=== PATIENT | male | born 1980 | race Caucasian/White ===

== ENCOUNTER 2022-06-05 01:38 | Inpatient (IN) | payer MEDICAID ==
[~2022-06-05] VITALS: Ht 188 cm; Wt 77.1 kg
[~2022-06-05 01:38] MED LIST: ARIP10TA38 PO; ARIP5TAB37 PO; BENZ1TAB96 PO; OLAN15TA21 PO; OLAN5TAB94 PO
[2022-06-05] MEDS ORDERED: OLAN5TAB94 PO ×2 (04:01→04:13)
[2022-06-05 13:59] VITALS: BP 129/61
[2022-06-05] MEDS ORDERED: PROMETHAZINE HCL 25 MG TABLET PO PRN (14:00)
[2022-06-05] MEDS ORDERED: HydrOXYzine PAMOATE 50 MG CAPSULE PO PRN ×2 (14:00→16:30)
[2022-06-05] MEDS ORDERED: OLANZapine 5 MG RAPDIS TABLET PO PRN ×2 (14:00)
[2022-06-05] MEDS ORDERED: ZOLPIDEM TARTRATE 10 MG TABLET PO PRN (14:00)
[2022-06-05] MEDS ORDERED: PALIPERIDONE PALMITATE 234 MG/1.5 ML SYRINGE IM ONE (14:00)
[2022-06-05] MEDS ORDERED: TUBERCULIN, PURIFIED PROTEIN DERIVATIVE 5 TU/0.1 ML SYRINGE ID ONE (14:00)
[2022-06-05] MEDS ORDERED: LORazepam 2 MG TABLET PO PRN (14:00)
[2022-06-05] MEDS ORDERED: GuaiFENesin/D-METHORPHAN [SUGAR-FREE] 200-20MG/10 ML SYRUP UDCUP PO PRN ×2 (14:00→16:30)
[2022-06-05] MEDS: THIAMINE 100 MG TABLET PO SCH (16:00)
[2022-06-05 16:05] VITALS: BP 112/62
[2022-06-05] MEDS ORDERED: THIAMINE 100 MG TABLET PO SCH (17:00)
[2022-06-05] MEDS ORDERED: OLANZapine 5 MG RAPDIS TABLET PO SCH (21:00)
[2022-06-05] MEDS: MELATONIN 5 MG TABLET PO SCH (21:30)
[2022-06-06 07:37] LABS: HEMOGLOBIN A1C 5.8 % (3.8-5.6)
[2022-06-06 07:43] LABS: CHOL/HDL RATIO 3.5 (4.2-7.3); FREE T4 (FREE THYROXINE) 0.73 ng/dL (0.76-1.46); THYROID STIMULATING HORMONE 2.14 uIU/mL (0.36-3.74)
[2022-06-06 08:45] VITALS: BP 120/67
[2022-06-06] MEDS: MULTIVITAMINS WITH MINERALS, THERAPEUTIC TABLET PO SCH (08:53)
[2022-06-06] MEDS: THIAMINE 100 MG TABLET PO SCH ×2 (08:53→16:32)
[2022-06-06] MEDS: FOLIC ACID 1 MG TABLET PO SCH (08:53)
[2022-06-06] MEDS: NALTREXONE HCL 50 MG TABLET PO SCH (08:54)
[2022-06-06] MEDS: OMEGA-3/DHA/EPA/FISH OIL 1,000 MG CAPSULE PO SCH (08:54)
[2022-06-06] MEDS ORDERED: FOLIC ACID 1 MG TABLET PO SCH (09:00)
[2022-06-06] MEDS ORDERED: MULTIVITAMINS WITH MINERALS, THERAPEUTIC TABLET PO SCH (09:00)
[2022-06-06 16:34] VITALS: BP 122/80
[2022-06-06] MEDS ORDERED: PALIPERIDONE PALMITATE 234 MG/1.5 ML SYRINGE IM ONE (18:15)
[2022-06-06] MEDS: MELATONIN 5 MG TABLET PO SCH (20:26)
[2022-06-07 08:00] VITALS: BP 126/89
[2022-06-07] MEDS: MULTIVITAMINS WITH MINERALS, THERAPEUTIC TABLET PO SCH (08:30)
[2022-06-07] MEDS: OMEGA-3/DHA/EPA/FISH OIL 1,000 MG CAPSULE PO SCH (08:30)
[2022-06-07] MEDS: THIAMINE 100 MG TABLET PO SCH ×2 (08:30→16:57)
[2022-06-07] MEDS: FOLIC ACID 1 MG TABLET PO SCH (08:30)
[2022-06-07] MEDS: NALTREXONE HCL 50 MG TABLET PO SCH (08:30)
[2022-06-07 16:13] VITALS: BP 113/73
[2022-06-07] MEDS: MELATONIN 5 MG TABLET PO SCH (21:00)
[2022-06-08] MEDS: MULTIVITAMINS WITH MINERALS, THERAPEUTIC TABLET PO SCH (08:39)
[2022-06-08] MEDS: NALTREXONE HCL 50 MG TABLET PO SCH (08:39)
[2022-06-08] MEDS: THIAMINE 100 MG TABLET PO SCH ×2 (08:39→16:07)
[2022-06-08] MEDS: FOLIC ACID 1 MG TABLET PO SCH (08:40)
[2022-06-08] MEDS: OMEGA-3/DHA/EPA/FISH OIL 1,000 MG CAPSULE PO SCH (08:40)
[2022-06-08 09:32] VITALS: BP 137/79
[2022-06-08 16:37] VITALS: BP 135/76
[2022-06-08] MEDS: MELATONIN 5 MG TABLET PO SCH (20:08)
[2022-06-08 20:33] VITALS: BP 152/75
[2022-06-09] MEDS: MULTIVITAMINS WITH MINERALS, THERAPEUTIC TABLET PO SCH (08:44)
[2022-06-09] MEDS: OMEGA-3/DHA/EPA/FISH OIL 1,000 MG CAPSULE PO SCH (08:44)
[2022-06-09] MEDS: THIAMINE 100 MG TABLET PO SCH ×2 (08:44→16:34)
[2022-06-09] MEDS: ARIPiprazole 10 MG TABLET PO SCH (08:44)
[2022-06-09] MEDS: NALTREXONE HCL 50 MG TABLET PO SCH ×2 (08:44→09:00)
[2022-06-09] MEDS: FOLIC ACID 1 MG TABLET PO SCH (08:45)
[2022-06-09 09:00] VITALS: BP 125/87
[2022-06-09] MEDS ORDERED: PALIPERIDONE PALMITATE 156 MG/ML SYRINGE IM ONE (09:00)
[2022-06-09 16:27] VITALS: BP 118/72
[2022-06-09] MEDS: MELATONIN 5 MG TABLET PO SCH (20:21)
[2022-06-10 08:00] VITALS: BP 111/61
[2022-06-10] MEDS: THIAMINE 100 MG TABLET PO SCH ×2 (09:00→16:41)
[2022-06-10] MEDS ORDERED: PALIPERIDONE PALMITATE 156 MG/ML SYRINGE IM ONE (09:00)
[2022-06-10] MEDS: NALTREXONE HCL 50 MG TABLET PO SCH ×2 (09:00→09:30)
[2022-06-10] MEDS: OMEGA-3/DHA/EPA/FISH OIL 1,000 MG CAPSULE PO SCH (09:30)
[2022-06-10] MEDS: ARIPiprazole 10 MG TABLET PO SCH (09:30)
[2022-06-10] MEDS: FOLIC ACID 1 MG TABLET PO SCH (09:30)
[2022-06-10] MEDS: MULTIVITAMINS WITH MINERALS, THERAPEUTIC TABLET PO SCH (09:30)
[2022-06-10 16:00] VITALS: BP 117/68
[2022-06-10] MEDS: MELATONIN 5 MG TABLET PO SCH (21:00)
[2022-06-11 06:44] LABS: COVID AG,FIA SOURCE NASAL SWAB
[2022-06-11 08:52] VITALS: BP 130/87
[2022-06-11] MEDS: ARIPiprazole 10 MG TABLET PO SCH (09:08)
[2022-06-11] MEDS: MULTIVITAMINS WITH MINERALS, THERAPEUTIC TABLET PO SCH (09:08)
[2022-06-11] MEDS: NALTREXONE HCL 50 MG TABLET PO SCH (09:08)
[2022-06-11] MEDS: OMEGA-3/DHA/EPA/FISH OIL 1,000 MG CAPSULE PO SCH (09:08)
[2022-06-11] MEDS: FOLIC ACID 1 MG TABLET PO SCH (09:08)
[2022-06-11] MEDS: THIAMINE 100 MG TABLET PO SCH ×2 (09:08→16:44)
[2022-06-11 16:15] VITALS: BP 122/68
[2022-06-11] MEDS: MELATONIN 5 MG TABLET PO SCH (21:00)
[2022-06-12] MEDS: NALTREXONE HCL 50 MG TABLET PO SCH (09:00)
[2022-06-12] MEDS: THIAMINE 100 MG TABLET PO SCH ×2 (09:58→16:43)
[2022-06-12] MEDS: OMEGA-3/DHA/EPA/FISH OIL 1,000 MG CAPSULE PO SCH (09:58)
[2022-06-12] MEDS: MULTIVITAMINS WITH MINERALS, THERAPEUTIC TABLET PO SCH (09:58)
[2022-06-12] MEDS: ARIPiprazole 10 MG TABLET PO SCH (09:58)
[2022-06-12] MEDS: FOLIC ACID 1 MG TABLET PO SCH (09:58)
[2022-06-12 10:53] VITALS: BP 144/77
[2022-06-12 16:00] VITALS: BP 103/66
[2022-06-12] MEDS: MELATONIN 5 MG TABLET PO SCH (21:00)
[2022-06-13 08:30] VITALS: BP 137/75
[2022-06-13] MEDS: NALTREXONE HCL 50 MG TABLET PO SCH (09:00)
[2022-06-13] MEDS: FOLIC ACID 1 MG TABLET PO SCH (10:32)
[2022-06-13] MEDS: MULTIVITAMINS WITH MINERALS, THERAPEUTIC TABLET PO SCH (10:32)
[2022-06-13] MEDS: THIAMINE 100 MG TABLET PO SCH ×2 (10:33→16:01)
[2022-06-13] MEDS: OMEGA-3/DHA/EPA/FISH OIL 1,000 MG CAPSULE PO SCH (10:33)
[2022-06-13] MEDS: ARIPiprazole 10 MG TABLET PO SCH (10:33)
[2022-06-13 16:40] VITALS: BP 116/67
[2022-06-13] MEDS: MELATONIN 5 MG TABLET PO SCH (20:06)
[2022-06-14] MEDS: NALTREXONE HCL 50 MG TABLET PO SCH (09:00)
[2022-06-14 09:12] VITALS: BP 146/83
[2022-06-14] MEDS: OMEGA-3/DHA/EPA/FISH OIL 1,000 MG CAPSULE PO SCH (09:18)
[2022-06-14] MEDS: MULTIVITAMINS WITH MINERALS, THERAPEUTIC TABLET PO SCH (09:18)
[2022-06-14] MEDS: FOLIC ACID 1 MG TABLET PO SCH (09:18)
[2022-06-14] MEDS: THIAMINE 100 MG TABLET PO SCH ×2 (09:18→16:17)
[2022-06-14] MEDS: ARIPiprazole 10 MG TABLET PO SCH (09:18)
[2022-06-14 16:28] VITALS: BP 144/68
[2022-06-14] MEDS: DOCUSATE SODIUM 100 MG CAPSULE PO SCH (20:26)
[2022-06-14] MEDS: MELATONIN 5 MG TABLET PO SCH (20:26)
[2022-06-15] MEDS ORDERED: MAGNESIUM CITRATE 300 ML ORAL SOLUTION PO ONE (07:00)
[2022-06-15] MEDS: MULTIVITAMINS WITH MINERALS, THERAPEUTIC TABLET PO SCH (08:32)
[2022-06-15] MEDS: OMEGA-3/DHA/EPA/FISH OIL 1,000 MG CAPSULE PO SCH (08:32)
[2022-06-15] MEDS: ARIPiprazole 10 MG TABLET PO SCH (08:32)
[2022-06-15] MEDS: THIAMINE 100 MG TABLET PO SCH (08:32)
[2022-06-15] MEDS: FOLIC ACID 1 MG TABLET PO SCH (08:33)
[2022-06-15] MEDS: NALTREXONE HCL 50 MG TABLET PO SCH (08:33)
[2022-06-15 09:32] VITALS: BP 125/76
[2022-06-15 16:14] VITALS: BP 107/65
[2022-06-15] MEDS: DOCUSATE SODIUM 100 MG CAPSULE PO SCH (20:31)
[2022-06-15] MEDS: MELATONIN 5 MG TABLET PO SCH (20:31)
[2022-06-16 08:01] VITALS: BP 106/63
[2022-06-16] MEDS: MULTIVITAMINS WITH MINERALS, THERAPEUTIC TABLET PO SCH (08:26)
[2022-06-16] MEDS: OMEGA-3/DHA/EPA/FISH OIL 1,000 MG CAPSULE PO SCH (08:26)
[2022-06-16] MEDS: ARIPiprazole 10 MG TABLET PO SCH (08:26)
[2022-06-16] MEDS: NALTREXONE HCL 50 MG TABLET PO SCH (10:52)
[2022-06-16 16:25] VITALS: BP 104/68
[2022-06-16] MEDS: DOCUSATE SODIUM 100 MG CAPSULE PO SCH (20:32)
[2022-06-16] MEDS: MELATONIN 5 MG TABLET PO SCH (20:33)
[2022-06-17] MEDS: MULTIVITAMINS WITH MINERALS, THERAPEUTIC TABLET PO SCH (09:00)
[2022-06-17] MEDS: OMEGA-3/DHA/EPA/FISH OIL 1,000 MG CAPSULE PO SCH (09:00)
[2022-06-17] MEDS: ARIPiprazole 10 MG TABLET PO SCH (09:00)
[2022-06-17] MEDS: NALTREXONE HCL 50 MG TABLET PO SCH (09:00)
[2022-06-17] MEDS ORDERED: OMEG-108 PO (13:33)
[2022-06-17] MEDS ORDERED: NALT50TA PO (13:33)
[2022-06-17] MEDS ORDERED: MELA5TAB40 PO (13:33)
[2022-06-17] MEDS ORDERED: ARIP10TA38 PO (13:33)
== END 2022-06-17 14:45 | disposition home or self-care (01) | DRG 750 ==
LOC: 3EI 13:23
PROVIDERS: ADMIT Psychiatry & Neurology Psychiatry; ATTEND Psychiatry & Neurology Psychiatry
DX: F25.0 Schizoaffective disorder, bipolar type (principal); Z91.14 Patient's other noncompliance with medication regimen; F10.129 Alcohol abuse with intoxication, unspecified; F41.9 Anxiety disorder, unspecified; J44.9 Chronic obstructive pulmonary disease, unspecified; F15.90 Other stimulant use, unspecified, uncomplicated; Z20.822 Contact with and (suspected) exposure to COVID-19; K59.00 Constipation, unspecified; Z55.9 Problems related to education and literacy, unspecified; Z59.9 Problem related to housing and economic circumstances, unspecified; Z63.9 Problem related to primary support group, unspecified; Z65.3 Problems related to other legal circumstances; Z87.891 Personal history of nicotine dependence; Z79.899 Other long term (current) drug therapy; Z59.00 Homelessness unspecified
CPT/HCPCS: 80061; 83036; 84439; 84443; 86592; 87081; Q9967